=== PATIENT | male | born 1955 | race Caucasian/White ===

== ENCOUNTER 2020-02-15 13:27 | Emergency (ER) | payer BC, MEDICAID ==
--- NOTE | 2020-02-15 13:52 | EDM.PDOC ---
ED HPI GENERAL MEDICAL PROBLEM - General Chief Complaint: Lower Extremity Injury/Pain Stated Complaint: INJURED L LEG Time Seen by Provider: 02/15/20 13:33 Source of Information: Reports: Patient History Limitations: Reports: No Limitations - History of Present Illness INITIAL COMMENTS - FREE TEXT/NARRATIVE: HISTORY AND PHYSICAL: History of present illness: Patient is a 64-year-old male who presents to the emergency room with complaints of left lower extremity pain after a fall. Patient states he had tripped over a railroad track and fallen on Saturday. Part of the railroad track had hit the mid medial left tib-fib causing a puncture wound. Denies hitting his head or having any loss of consciousness. Denies any other bodily injury or trauma. He states that he initially thought he "just bruised it" but since has become more tender, swollen and bruised. His was concerned that he may have a blood clot in the calf due to the bruising. She has been using an Harry wrap to help apply compression, has not improved his discomfort. Patient is ambulatory although has increased pain at the ankle and tib-fib area with weightbearing. Patient denies any fever, chills, headache, change in vision, syncope or near syncope. Denies any chest pain, back pain, shortness of breath or cough. Denies any abdominal pain, nausea, vomiting, diarrhea, constipation or dysuria. Has not noted any blood in urine or stool. Patient has been eating and drinking appropriately. Review of systems: As per history of present illness and below otherwise all systems reviewed and negative. Past medical history: As per history of present illness and as reviewed below otherwise noncontributory. Surgical history: As per history of present illness and as reviewed below otherwise n oncontributory. Social history: See social history for further information Family history: As per history of present illness and as reviewed below otherwise noncontributory. Physical exam: General: Well-developed and well-nourished 64-year-old male. Alert and oriented. Nontoxic-appearing and in no acute distress. Vital signs are stable and have been reviewed by me. HEENT: Atraumatic, normocephalic, pupils equal and reactive bilaterally, negative for conjunctival pallor or scleral icterus, mucous membranes moist, TMs normal bilaterally, throat clear, neck supple, nontender, trachea midline. No drooling or trismus noted. No meningeal signs. No hot potato voice noted. Lungs: Clear to auscultation, breath sounds equal bilaterally, chest nontender. Heart: S1S2, regular rate and rhythm without overt murmur Abdomen: Soft, nondistended, nontender. Negative for masses or hepatosplenomegaly. Negative for costovertebral tenderness. Pelvis: Stable nontender. Skin: Quarter sized area of bruising that is semi-firm and tender to the left medial tib-fib. There is some slight redness around this area. Otherwise skin is intact, warm, dry. No lesions or rashes noted. Extremities: Tenderness to the left medial ankle and mid/distal tib-fib. See skin for details. Moves all extremities per self without difficulty or deficits, negative for cords or calf pain. Neurovascular unremarkable. Neuro: Awake, alert, oriented. Cranial nerves II through XII unremarkable. Cerebellum unremarkable. Motor and sensory unremarkable throughout. Exam nonfocal. Notes: X-ray of the ankle and tib-fib shows soft tissue swelling. Small plantar spur is noted. Old injury involving the medial malleolus is noted. Lab work is unremarkable. He does have some mild redness surrounding the area, we discussed doing a short course of antibiotic with follow-up with his primary care. We discussed signs and symptoms that would prompt him to return to the emergency room. Medication, follow-up and supportive care measures were reviewed and discussed. Voices understanding and is agreeable to plan of care. Denies any further questions or concerns at this time. Diagnostics: X-ray tib-fib/ankle, venous ultrasound Therapeutics: CAM Walker boot, crutches Prescription: Keflex Impression: Fall Left leg contusion Plan: 1. Your x-ray shows no fractures. The ultrasound that was done shows no evidence of a blood clot. The area of swelling is a contusion which is like a bruise under the skin with a collection of blood. This should not involve any circulation problems. You can continue to apply compression with the Harry wrap for comfort. Rest, ice, elevate the extremity as able. 2. Alternate Tylenol and ibuprofen as we discussed. 3. Follow-up with your primary care provider as we discussed. Return to the ED as needed and as discussed. Definitive disposition and diagnosis as appropriate pending reevaluation and review of above. Duration: Day(s): Location: Reports: Lower Extremity, Left left leg Pain Score (Numeric/FACES): 6 - Related Data Allergies Allergy/AdvReac Type Severity Reaction Status Date / Time No Known Allergies Allergy Verified 10/14/15 10:51 Home Meds: Home Meds Omeprazole Magnesium [Prilosec Otc] 20 mg PO DAILY 02/15/20 [History] cephALEXin [Keflex] 500 mg PO BID 5 Days #10 cap 02/15/20 [Rx] Past Medical History - Past Health History Medical/Surgical History: Denies Medical/Surgical History Gastrointestinal History: Reports: GERD - Infectious Disease History Infectious Disease History: Reports: None - Past Surgical History HEENT Surgical History: Reports: Tonsillectomy Social & Family History - Family History Family Medical History: Noncontributory - Tobacco Use Smoking Status *Q: Never Smoker - Caffeine Use Caffeine Use: Reports: Coffee - Recreational Drug Use Recreational Drug Use: No Review of Systems - Review of Systems Review Of Systems: Comprehensive ROS is negative, except as noted in HPI. ED EXAM, GENERAL - Physical Exam Exam: See Below (See dictation) Course - Vital Signs Last Recorded V/S: Last Vital Signs Temp 96.3 F L 02/15/20 13:44 Pulse 90 02/15/20 13:44 Resp 18 02/15/20 13:44 BP 139/80 02/15/20 13:44 Pulse Ox 97 02/15/20 13:44 - Orders/Labs/Meds Orders: Active Orders 24 hr Category Date Time Status DME for Discharge [COMM] Stat Oth 02/15/20 16:02 Ordered Labs: Laboratory Tests 02/15/20 02/15/20 Range/Units 14:15 14:15 WBC 7.02 (4.0-11.0) K/uL RBC 4.44 L (4.50-5.90) M/uL Hgb 12.7 L (13.0-17.0) g/dL Hct 39.1 (38.0-50.0) % MCV 88.1 (80.0-98.0) fL MCH 28.6 (27.0-32.0) pg MCHC 32.5 (31.0-37.0) g/dL RDW Std Deviation 46.0 (28.0-62.0) fl RDW Coeff of Cady 14 (11.0-15.0) % Plt Count 246 (150-400) K/uL MPV 10.20 (7.40-12.00) fL Neut % (Auto) 62.1 (48.0-80.0) % Lymph % (Auto) 24.5 (16.0-40.0) % Sanders % (Auto) 12.8 (0.0-15.0) % Eos % (Auto) 0.3 (0.0-7.0) % Baso % (Auto) 0.3 (0.0-1.5) % Neut # (Auto) 4.4 (1.4-5.7) K/uL Lymph # (Auto) 1.7 (0.6-2.4) K/uL Sanders # (Auto) 0.9 H (0.0-0.8) K/uL Eos # (Auto) 0.0 (0.0-0.7) K/uL Baso # (Auto) 0.0 (0.0-0.1) K/uL Nucleated RBC % 0.0 /100WBC Nucleated RBCs # 0 K/uL INR 1.02 Departure - Departure Time of Disposition: 16:03 Disposition: Home, Self-Care 01 Clinical Impression: Fall Qualifiers: Encounter type: initial encounter Qualified Code(s): W19.XXXA - Unspecified fall, initial encounter Contusion of leg, left Qualifiers: Encounter type: initial encounter Qualified Code(s): S80.12XA - Contusion of left lower leg, initial encounter - Discharge Information Prescriptions: cephALEXin [Keflex] 500 mg PO BID 5 Days #10 cap Instructions: Contusion, [id number] Referrals: PCP,None [Primary Care Provider] - Forms: ED Department Discharge Additional Instructions: The following information is given to patients seen in the emergency department who are being discharged to home. This information is to outline your options for follow-up care. We provide all patients seen in our emergency department with a follow-up referral. The need for follow-up, as well as the timing and circumstances, are variable depending upon the specifics of your emergency department visit. If you don't have a primary care physician on staff, we will provide you with a referral. We always advise you to contact your personal physician following an emergency department visit to inform them of the circumstance of the visit and for follow-up with them and/or the need for any referrals to a consulting specialist. The emergency department will also refer you to a specialist when appropriate. This referral assures that you have the opportunity for follow-up care with a specialist. All of these measure are taken in an effort to provide you with optimal care, which includes your follow-up. Under all circumstances we always encourage you to contact your private physician who remains a resource for coordinating your care. When calling for follow-up care, please make the office aware that this follow-up is from your recent emergency room visit. If for any reason you are refused follow-up, please contact the [facility] Emergency Department at and asked to speak to the emergency department charge nurse. [facility] [address] [place] [id number] [place] [address] 1. Your x-ray shows no fractures. The ultrasound that was done shows no evidence of a blood clot. The area of swelling is a contusion which is like a bruise under the skin with a collection of blood. This should not involve any circulation problems. You can continue to apply compression with the Harry wrap for comfort. Rest, ice, elevate the extremity as able. Take the Keflex as prescribed and continue to monitor the skin for any redness. Should this worsen or new symptoms develop return to the emergency room immediately. 2. Alternate Tylenol and ibuprofen as we discussed. 3. Follow-up with your primary care provider as we discussed. Return to the ED as needed and as discussed. Sepsis Event Note (ED) - Evaluation Sepsis Screening Result: No Definite Risk - Focused Exam Vital Signs: Vital Signs Temp Pulse Resp BP Pulse Ox 02/15/20 13:44 96.3 F L 90 18 139/80 97 - My Orders Last 24 Hours: My Active Orders 02/15/20 16:02 DME for Discharge [COMM] Stat - Assessment/Plan Last 24 Hours: My Active Orders 02/15/20 16:02 DME for Discharge [COMM] Stat
--- NOTE | 2020-02-15 14:30 | CR ---
Left ankle: 3 views of left ankle were obtained. Comparison: No previous ankle study. Soft tissue swelling is identified. Ankle mortise is symmetric. Small plantar spur is seen. Minimal bony irregularity is noted off the medial talar dome possibly due to old chip fracture. Mild deformity of the tip of the medial malleolus is noted likely relating to old injury. Impression: 1. Soft tissue swelling. Other findings which are felt to represent old injury. 2. Small plantar spur. 3. No acute bony abnormality is seen. Diagnostic code #2 This report was dictated in MDT
--- NOTE | 2020-02-15 14:32 | CR ---
Left tibia and fibula: AP and lateral views of the left tibia and fibula were obtained. Comparison: No previous study. Soft tissue swelling is noted. No discrete fracture or other bony abnormality is appreciated. Impression: 1. Soft tissue swelling. 2. No acute bony abnormality is seen. Diagnostic code #2 This report was dictated in MDT
--- NOTE | 2020-02-15 15:58 | US ---
Left lower extremity deep venous ultrasound: Duplex and color Doppler evaluation was obtained of the left common femoral, superficial femoral, popliteal and posterior tibial veins. Findings: Normal Doppler blood flow and compression is seen. Impression: 1. No evidence of deep venous thrombosis within the left lower extremity. Diagnostic code #1 This report was dictated in MDT
== END 2020-02-15 16:12 | disposition home or self-care (01) ==
LOC: MW.ED 13:27
DX: S80.12XA Contusion of left lower leg, initial encounter (principal); K21.9 Gastro-esophageal reflux disease without esophagitis; Z79.899 Other long term (current) drug therapy; W01.0XXA Fall on same level from slipping, tripping and stumbling without subsequent striking against object, initial encounter
CPT/HCPCS: 36415; 73590-26-LT; 73590-LT; 73610-26-LT; 73610-LT; 85025; 85610; 93971-26-LT; 93971-LT; 99284; 99284-25

== ENCOUNTER 2020-03-24 08:18 | Emergency (ER) | payer BC, OTHER ==
--- NOTE | 2020-03-24 10:14 | PCM.SN.2 ---
- Free Text/Narrative Note: I went to see the patient. I was informed by nursing the patient eloped from the emergency department did not want to wait for AMA paperwork. I did call both phone numbers to try to explain the patient that we are able to see him. Both phone numbers were disconnected and I was unable to reach the patient.
== END 2020-03-24 10:10 | disposition home or self-care (01) ==
LOC: MW.ED 08:18
DX: Z53.21 Procedure and treatment not carried out due to patient leaving prior to being seen by health care provider (principal)

== ENCOUNTER 2020-03-24 10:58 | Emergency (ER) | payer SELFPAY ==
--- NOTE | 2020-03-24 11:36 | EDM.PDOC ---
ED HPI GENERAL MEDICAL PROBLEM - General Chief Complaint: Lower Extremity Injury/Pain Stated Complaint: LT ANKLE INJURY Time Seen by Provider: 03/24/20 11:04 Source of Information: Reports: Patient History Limitations: Reports: No Limitations - History of Present Illness INITIAL COMMENTS - FREE TEXT/NARRATIVE: HISTORY AND PHYSICAL: History of present illness: Patient is a 64-year-old male who presents to the emergency room with complaints of headache and left lateral ankle pain. He states he was out at a job site when a bucket had hit him on the left side of the head, was wearing a hard hat and had no loss of consciousness. The bucket eventually hit his left lateral ankle which has been causing pain with weightbearing, palpation and ambulation. Upon arrival he states he still has a mild dull headache to the left lateral scalp. Patient denies any fever, chills, headache, change in vision, syncope or near syncope. Denies any chest pain, back pain, shortness of breath or cough. Denies any GI or symptoms. Review of systems: As per history of present illness and below otherwise all systems reviewed and negative. Past medical history: As per history of present illness and as reviewed below otherwise noncontributory. Surgical history: As per history of present illness and as reviewed below otherwise noncontributory. Social history: See social history for further information Family history: As per history of present illness and as reviewed below otherwise noncontributory. Physical exam: General: Well-developed and well-nourished 64-year-old male. Alert and oriented. Nontoxic-appearing and in no acute distress. HEENT: Mild tenderness with palpation of the left parietal area, no obvious injury or soft tissue swelling. Normocephalic, pupils equal and reactive bilaterally, negative for conjunctival pallor or scleral icterus, mucous membranes moist, TMs normal bilaterally, throat clear, neck supple, nontender, trachea midline. No drooling or trismus noted. No meningeal signs. No hot potato voice noted. Lungs: Clear to auscultation, breath sounds equal bilaterally, chest nontender. Heart: S1S2, regular rate and rhythm without overt murmur Abdomen: Soft, nondistended, nontender. Skin: Intact, warm, dry. No lesions or rashes noted. C-spine/Back: No pinpoint vertebral tenderness upon palpation. No crepitus, step-offs or obvious deformities. Patient is ambulatory into the emergency room without difficulty or deficit. Able to rock back on heels and walk on toes. Denies any urinary or fecal incontinence. Denies any numbness, tingling or saddle paresthesia. No concerns of serious infection, fracture or cord compression, or cauda equina syndrome. Deep tendon reflexes brisk bilaterally. Extremities: Pain with palpation of the left lateral malleolus, moves all extremities per self without difficulty or deficits, negative for cords or calf pain. +CMS. strong pedal pulses bilaterally. Patient is ambulatory into the emergency room. Neurovascular unremarkable. Neuro: Awake, alert, oriented. Cranial nerves II through XII unremarkable. Cerebellum unremarkable. Motor and sensory unremarkable throughout. Exam nonfocal. Notes: Please note that the patient was here just a few hours earlier presenting with the same complaint, he left without being seen and declined to sign paperwork. He states he returned to the emergency room as "my boss made me". Discussed risks versus benefits of a head CT, he would like to proceed forward with this. States his headache is generally gone at this time. CT and ankle x-ray are unremarkable. Offered crutches and Harry wrap for supportive care of the left ankle contusion. He can wear this over the next 1 to 3 days for comfort. If he continues to have pain encouraged him to follow-up with orthopedic provider. Supportive care measures were reviewed and discussed. Voices understanding and is agreeable to plan of care. Denies any further questions or concerns at this time. Diagnostics: Head CT, left ankle x-ray Therapeutics: Harry wrap and crutches Prescription: None Impression: Left ankle injury Head injury Plan: 1. Head CT and ankle x-ray are normal. Rest, ice, elevate the affected extremity. Please wear the splint as directed. 2. Tylenol and/or Ibuprofen as needed for pain management. 3. Follow up with the Orthopedic provider as we discussed. Return to the ED as needed and as discussed. Definitive disposition and diagnosis as appropriate pending reevaluation and review of above. L foot Pain Score (Numeric/FACES): 5 - Related Data Allergies Allergy/AdvReac Type Severity Reaction Status Date / Time No Known Allergies Allergy Verified 03/24/20 11:45 Home Meds: Home Meds Omeprazole Magnesium [Prilosec Otc] 20 mg PO DAILY 02/15/20 [History] Past Medical History - Past Health History Medical/Surgical History: Denies Medical/Surgical History Gastrointestinal History: Reports: GERD - Infectious Disease History Infectious Disease History: Reports: None - Past Surgical History HEENT Surgical History: Reports: Tonsillectomy Social & Family History - Family History Family Medical History: Noncontributory - Caffeine Use Caffeine Use: Reports: None Review of Systems - Review of Systems Review Of Systems: Comprehensive ROS is negative, except as noted in HPI. ED EXAM, GENERAL - Physical Exam Exam: See Below (See dictation) Course - Vital Signs Last Recorded V/S: Last Vital Signs Temp 96.6 F L 03/24/20 11:20 Pulse 66 03/24/20 11:20 Resp 18 03/24/20 11:20 BP 141/82 H 03/24/20 11:20 Pulse Ox 98 03/24/20 11:20 - Orders/Labs/Meds Orders: Active Orders 24 hr Category Date Time Status DME for Discharge [COMM] Stat Oth 03/24/20 12:14 Ordered Departure - Departure Time of Disposition: 12:15 Disposition: Home, Self-Care 01 Clinical Impression: Head injury Qualifiers: Encounter type: initial encounter Qualified Code(s): S09.90XA - Unspecified injury of head, initial encounter Left ankle injury Qualifiers: Encounter type: initial encounter Qualified Code(s): S99.912A - Unspecified injury of left ankle, initial encounter - Discharge Information Referrals: PCP,None [Primary Care Provider] - Forms: ED Department Discharge Additional Instructions: The following information is given to patients seen in the emergency department who are being discharged to home. This information is to outline your options for follow-up care. We provide all patients seen in our emergency department with a follow-up referral. The need for follow-up, as well as the timing and circumstances, are variable depending upon the specifics of your emergency department visit. If you don't have a primary care physician on staff, we will provide you with a referral. We always advise you to contact your personal physician following an emergency department visit to inform them of the circumstance of the visit and for follow-up with them and/or the need for any referrals to a consulting specialist. The emergency department will also refer you to a specialist when appropriate. This referral assures that you have the opportunity for follow-up care with a specialist. All of these measure are taken in an effort to provide you with optimal care, which includes your follow-up. Under all circumstances we always encourage you to contact your private physician who remains a resource for coordinating your care. When calling for follow-up care, please make the office aware that this follow-up is from your recent emergency room visit. If for any reason you are refused follow-up, please contact the [facility] Emergency Department at and asked to speak to the emergency department charge nurse. [facility] [address] [place] [address] [id number] [facility] [address] [place] [id number] Thank you for choosing the [facility] emergency department in [place] for your medical needs today. It was a pleasure caring for you. You were seen in the emergency department for head injury and ankle injury. 1. Head CT and ankle x-ray are normal. Rest, ice, elevate the affected extremity. Please wear the splint as directed. 2. Tylenol and/or Ibuprofen as needed for pain management. 3. Follow up with the Orthopedic provider as we discussed. Return to the ED as needed and as discussed. Sepsis Event Note (ED) - Focused Exam Vital Signs: Vital Signs Temp Pulse Resp BP Pulse Ox 03/24/20 11:20 96.6 F L 66 18 141/82 H 98 - My Orders Last 24 Hours: My Active Orders 03/24/20 12:14 DME for Discharge [COMM] Stat - Assessment/Plan Last 24 Hours: My Active Orders 03/24/20 12:14 DME for Discharge [COMM] Stat
--- NOTE | 2020-03-24 12:07 | CR ---
Left ankle: 3 views left ankle were obtained. Comparison: Previous left ankle study of 02/15/20. Ankle mortise is symmetric. Minimal plantar spur is noted. Minimal irregularity off the medial talar dome is again noted most likely relating to old injury. No acute fracture or dislocation is seen. Impression: 1. Findings as noted above. 2. Nothing acute is appreciated. Diagnostic code #2 This report was dictated in MDT
--- NOTE | 2020-03-24 12:10 | CT ---
Head CT Technique: Multiple axial sections through the brain were obtained. Intravenous contrast was not utilized. Comparison: No prior intracranial imaging is available. Findings: Ventricles along with basal cisterns and sulci over the convexities are within normal limits for the patient's age. No abnormal parenchymal densities are seen. No evidence of intracranial hemorrhage. No midline shift or mass-effect is seen. Bone window settings were reviewed. Mild mucosal thickening is seen within the right ethmoid sinus. Visualized mastoid sinuses show nothing acute. No acute calvarial finding is seen. Impression: 1. Nothing acute is appreciated on noncontrast head CT exam. Diagnostic code #1 This report was dictated in MDT
== END 2020-03-24 12:27 | disposition home or self-care (01) ==
LOC: MW.ED 10:58
DX: S09.90XA Unspecified injury of head, initial encounter (principal); S99.912A Unspecified injury of left ankle, initial encounter; K21.9 Gastro-esophageal reflux disease without esophagitis; Z79.899 Other long term (current) drug therapy; W22.8XXA Striking against or struck by other objects, initial encounter
CPT/HCPCS: 70450; 70450-26; 73610-26-LT; 73610-LT; 99284; 99284-25

== ENCOUNTER 2020-09-23 09:33 | Day surgery (SDC) | payer BC ==
[~2020-09-23 09:33] MED LIST: Lactated Ringers 1,000 ML IV SCH; Lidocaine 2% 5 ML SDV ONE; Midazolam 1 MG/ML 2 ML SDV ONE; Propofol 200 MG/20 ML SDV ONE; fentaNYL 100 MCG/2 ML SDV ONE
--- NOTE | 2020-09-23 09:50 | PCM.PREANE ---
Preanesthetic Assessment - Anesthesia/Transfusion/Family Hx Anesthesia History: Prior Anesthesia Without Reaction Family History of Anesthesia Reaction: No Transfusion History: No Prior Transfusion(s) - Review of Systems General: No Symptoms Pulmonary: No Symptoms Cardiovascular: No Symptoms Gastrointestinal: No Symptoms Neurological: No Symptoms Other: Reports: None - Physical Assessment NPO Status Date: 09/22/20 Vital Signs: Last Vital Signs Temp 97.2 F 09/23/20 09:42 Pulse 64 09/23/20 09:42 Resp 14 09/23/20 09:42 BP 133/74 09/23/20 09:42 Pulse Ox 97 09/23/20 09:42 Height: 5 ft 9 in Weight: 82.554 kg ASA Class: 2 Mental Status: Alert & Oriented x3 Airway Class: Mallampati = 2 Dentition: Reports: Broken Tooth/Teeth ROM/Head Extension: Full Lungs: Clear to Auscultation, Normal Respiratory Effort Cardiovascular: Regular Rate, Regular Rhythm - Lab Values: Laboratory Last Values SARS-CoV-2 RNA (MAGGIE) NEGATIVE (NEGATIVE) 09/23/20 08:15 - Allergies Allergies/Adverse Reactions: Allergies Allergy/AdvReac Type Severity Reaction Status Date / Time No Known Allergies Allergy Verified 09/23/20 09:48 - Blood Blood Available: No - Anesthesia Plan Pre-Op Medication Ordered: None - Acknowledgements Anesthesia Type Planned: General Anesthesia (tiva) Pt an Appropriate Candidate for the Planned Anesthesia: Yes Alternatives and Risks of Anesthesia Discussed w Pt/Guardian: Yes Pt/Guardian Understands and Agrees with Anesthesia Plan: Yes PreAnesthesia Questionnaire - Past Health History Medical/Surgical History: Denies Medical/Surgical History HEENT History: Reports: Other (See Below) Other HEENT History: wears glasses Gastrointestinal History: Reports: Colon Polyp, GERD, Hiatal Hernia Genitourinary History: Reports: BPH Musculoskeletal History: Reports: Fracture Other Musculoskeletal History: hx of fx arm as a child Hematologic History: Reports: Iron Deficiency - Infectious Disease History Infectious Disease History: Reports: None - Past Surgical History Head Surgeries/Procedures: Reports: None HEENT Surgical History: Reports: Tonsillectomy GI Surgical History: Reports: Colonoscopy, EGD Male Surgical History: Reports: Vasectomy - SUBSTANCE USE Tobacco Use Status *Q: Former Tobacco User Tobacco Use Within Last Twelve Months: No Recreational Drug Use History: No - HOME MEDS Home Medications: Home Meds Omeprazole Magnesium [Prilosec Otc] 20 mg PO DAILY 02/15/20 [History] Tamsulosin HCl 0.4 mg PO DAILY 09/19/20 [History] - CURRENT (IN HOUSE) MEDS Current Meds: Current Medications Lactated Ringer's (Ringers, Lactated) 1,000 mls @ 125 mls/hr IV ASDIRECTED [facility] Last Admin: 09/23/20 09:47 Dose: 125 mls/hr Documented by: Discontinued Medications Fentanyl (Sublimaze) Confirm Administered Dose 100 mcg .ROUTE .STK-MED ONE Stop: 09/23/20 07:05 Lidocaine (Xylocaine-Mpf 2%) Confirm Administered Dose 5 ml .ROUTE .STK-MED ONE Stop: 09/23/20 06:49 Midazolam HCl (Versed 1 Mg/Ml) Confirm Administered Dose 2 mg .ROUTE .STK-MED ONE Stop: 09/23/20 07:07 Propofol (Diprivan 20 Ml) Confirm Administered Dose 200 mg .ROUTE .STK-MED ONE Stop: 09/23/20 06:48 Propofol (Diprivan 20 Ml) Confirm Administered Dose 200 mg .ROUTE .STK-MED ONE Stop: 09/23/20 06:50
[2020-09-23] MEDS ORDERED: Glycopyrrolate 0.2 MG/ML SDV ONE (10:09)
[2020-09-23] MEDS ORDERED: Lactated Ringers 1,000 ML IV SCH (10:45)
--- NOTE | 2020-09-23 10:50 | PCM.OPNOTE ---
- General Post-Op/Procedure Note Date of Surgery/Procedure: 09/23/20 Operative Procedure(s): Esophagogastroduodenoscopy with gastric, distal and proximal esophageal biopsies and gastric polypectomy. Colonoscopy. Pre Op Diagnosis: Anemia. History of Schatzki's ring. History of colon polyps. Rectal bleeding. Unexplained weight loss. Anesthesia Technique: MAC (ASA II) Primary Surgeon: Nhan Mae Condition: Good Free Text/Narrative:: DICTATION [id number] CPT CODE [id number]
--- NOTE | 2020-09-23 11:11 | PCM48HPAN ---
Post Anesthesia Note - EVALUATION WITHIN 48HRS OF ANESTHETIC Vital Signs in Normal Range: Yes Patient Participated in Evaluation: Yes Respiratory Function Stable: Yes Airway Patent: Yes Cardiovascular Function Stable: Yes Hydration Status Stable: Yes Pain Control Satisfactory: Yes Nausea and Vomiting Control Satisfactory: Yes Mental Status Recovered: Yes Vital Signs: Last Vital Signs Temp 97.2 F 09/23/20 09:42 Pulse 69 09/23/20 10:58 Resp 12 09/23/20 10:58 BP 115/72 09/23/20 10:58 Pulse Ox 93 L 09/23/20 10:58
--- NOTE | 2020-09-23 11:11 | PCM.POSTAN ---
POST ANESTHESIA ASSESSMENT - MENTAL STATUS Mental Status: Alert, Oriented - VITAL SIGNS Vital Signs: Last Vital Signs Temp 97.2 F 09/23/20 09:42 Pulse 69 09/23/20 10:58 Resp 12 09/23/20 10:58 BP 115/72 09/23/20 10:58 Pulse Ox 93 L 09/23/20 10:58 - RESPIRATORY Respiratory Status: Respiratory Rate WNL, Airway Patent, O2 Saturation Stable - CARDIOVASCULAR CV Status: Pulse Rate WNL, Blood Pressure Stable - GASTROINTESTINAL GI Status: No Symptoms - POST OP HYDRATION Hydration Status: Adequate & Stable
--- NOTE | 2020-09-23 12:15 | OR ---
SURGEON: Nhan Mae M.D. DATE OF PROCEDURE: 09/23/2020 OPERATION PERFORMED: Esophagogastroduodenoscopy with gastric biopsy, gastric polypectomy, and distal and proximal esophageal biopsies. ANESTHESIA: MAC. ASA CLASSIFICATION: II. PREOPERATIVE DIAGNOSES: 1. Anemia. 2. History of Schatzki ring. POSTOPERATIVE DIAGNOSES: 1. [id number] chronic gastritis without ulceration. 2. Gastric polyps. 3. Proximal and distal esophagitis. DESCRIPTION OF PROCEDURE: The patient was taken to the endoscopy room and positioned on the endoscopy table in the left lateral decubitus position. Time-out was called for appropriate identification of the patient and procedure. Monitored anesthesia care was provided. The bite block was placed between the patient's teeth. The gastroscope was inserted through the bite block and advanced without difficulty through the esophagus and stomach into the duodenum where examination was now carried out in a retrograde fashion. The duodenum showed no acute inflammatory changes or ulcerations. The gastroscope was withdrawn to the stomach, which did show [id number] chronic gastritis. Antral biopsies were obtained to look for the presence of Helicobacter pylori. The gastroscope was retroflexed to visualize the proximal stomach, then straightened and slowly withdrawn. The patient did have gastric polyps, and biopsies of the distal and mid stomach were obtained removing polyps for their histologic identification. The GE junction was sharply defined, although there were inflammatory changes noted at 40 cm from the incisors with what appeared to be columnarization of the mucosa. Biopsies of this area were taken. The midportion of the esophagus itself demonstrated good contractility with healthy-appearing mucosa. Proximally, the patient did demonstrate inflammatory changes as well and separate biopsies at 15 cm from the incisors were obtained. The vocal cords were visualized as the scope was withdrawn and noted to move symmetrically. The gastroscope was then removed with the patient having tolerated this portion of the procedure well. Following colonoscopy, he was taken to recovery room in stable condition. GUSTAVO / MOUNA /[id number]
--- NOTE | 2020-09-23 12:55 | OR ---
SURGEON: Nhan Mae M.D. DATE OF PROCEDURE: 09/23/2020 OPERATION PERFORMED: Colonoscopy. PRIMARY SURGEON: Nhan Mae M.D. ANESTHESIA: MAC. ASA CLASSIFICATION: II. PREOPERATIVE DIAGNOSES: 1. Anemia. 2. History of colon polyps. 3. Unexplained weight loss. 4. Rectal bleeding. POSTOPERATIVE DIAGNOSES: No evidence of colonic neoplasia. DESCRIPTION OF PROCEDURE: The patient was taken to the endoscopy or was maintained in the endoscopy room on the endoscopy cart in the left lateral decubitus position. Having completed upper GI endoscopy, the patient was now going to undergo colonoscopy. The colonoscope was inserted into the rectum and advanced with minimal difficulty to the cecum. The cecum was identified by internal landmarks and external pressure. The colonoscope was retroflexed to visualize the ascending colon from below, then straightened, and slowly withdrawn. The prep was excellent. The cecum, ascending colon, hepatic flexure, transverse colon, splenic flexure, descending colon, sigmoid colon, and rectum were very well visualized. No tumors, polyps, or diverticular changes were noted anywhere in the lower gastrointestinal tract. There was no evidence of inflammatory bowel disease. Once the colonoscope was withdrawn to the rectum, it was retroflexed to visualize the anal orifice from above. Again, no tumors or polyps were seen and there were no acute hemorrhoidal changes. The colonoscope was then straightened, the rectum aspirated, and the colonoscope removed. The patient tolerated the procedure well and was taken to recovery room in satisfactory condition. GUSTAVO / MOUNA /[id number]
== END 2020-09-23 11:38 | disposition home or self-care (01) ==
LOC: MW.SDS 09:33
PROVIDERS: ATTEND Surgery
DX: D64.9 Anemia, unspecified (principal); K29.50 Unspecified chronic gastritis without bleeding; K25.9 Gastric ulcer, unspecified as acute or chronic, without hemorrhage or perforation; K31.7 Polyp of stomach and duodenum; N40.1 Benign prostatic hyperplasia with lower urinary tract symptoms; N39.43 Post-void dribbling; Z01.812 Encounter for preprocedural laboratory examination; Z20.828 Contact with and (suspected) exposure to other viral communicable diseases; Z86.010 Personal history of colon polyps; Z79.899 Other long term (current) drug therapy; Z98.890 Other specified postprocedural states; Z87.891 Personal history of nicotine dependence; Z86.16 Personal history of COVID-19
CPT/HCPCS: 43239; 45378; 87635; J2001; J2250; J2704; J3010; J3490; J7120; 00813; 88305; 88312; U0002

== ENCOUNTER 2021-09-04 15:30 | Emergency (ER) | payer BC ==
--- NOTE | 2021-09-04 15:50 | EDM.PDOC ---
ED HPI GENERAL MEDICAL PROBLEM - General Chief Complaint: Chest Pain Stated Complaint: CHEST PAIN Time Seen by Provider: 09/04/21 15:48 - History of Present Illness INITIAL COMMENTS - FREE TEXT/NARRATIVE: History of present illness: The patient is here because of chest pain. On the fifth of this month he began to have a little bit of chest pain and has had a twinge of chest pain since. First episode occurred when he was working in the garage with a space heater on a car. He was exerting himself. He was diaphoretic and felt like he had indigestion. It was a funny pressure in the center of his chest. Associated with diaphoresis but no nausea. He was slightly short of breath. It was worse with exertion. He got to space where he can breathe better and said he got better. He continues to have a twinge in his anterior chest since. On Saturday he had a more prolonged episode of severe pain while he was working on same car in the same close space with the same space heater. He did notice since then that with exertion he gets worse. At that time he felt so faint he lowered himself to the floor and thinks he may have passed out briefly but without injury. The patient is a non-smoker. He is not diabetic. He does not take blood pressure or cholesterol medicine. He has negative family history of coronary vessel disease or thromboembolic disease. He has no recent trip, cast, surgery or immobilization. [] Review of systems: As per history of present illness and below otherwise all systems reviewed and negative. Past medical history: As per history of present illness and as reviewed below otherwise noncontributory. Surgical history: As per history of present illness and as reviewed below otherwise noncontributory. Social history: No reported history of drug or alcohol abuse. Family history: As per history of present illness and as reviewed below otherwise noncontributory. Physical exam: Constitutional - well developed, well-nourished and in no acute distress HEENT - normocephalic, no evidence of trauma - external nose and mouth normal - no mass in neck and no JVD - mucosae moist EYES - full EOM, PERRL, no icterus - no evidence of inflammation, injection, or drainage Respiratory - no respiratory distress, equal bilateral expansion, lungs clear to auscultation and no abnormal lung sounds Cardiovascular - Regular Rhythm with S1 and S2 appreciated and no murmur, gallop or rub. GI - abdomen soft without distension or organomegaly - normal bowel sounds - no guard or rebound Musculoskeletal no gross deformity of long bones or joints - no tenderness, swelling or edema Neurologic - Alert and oriented times four - CN II-XII grossly intact - motor sensory and coordination symmetrically normal Psychiatric - appropriate mood and affect with normal thought content Hematologic - No petechiae or purpura - mucosa appropriate color and sclera not pale - normal nail bed color and refill Integument - no rash or evidence of trauma - normal turgor Diagnostics: [] Therapeutics: [] Impression: [] Plan: [] Definitive disposition and diagnosis as appropriate pending reevaluation and review of above. Chest Pain Score (Numeric/FACES): 6 - Related Data Allergies Allergy/AdvReac Type Severity Reaction Status Date / Time No Known Allergies Allergy Verified 09/04/21 15:45 Home Meds: Home Meds . [No Known Home Meds] 09/04/21 [History] Past Medical History - Past Health History Medical/Surgical History: Denies Medical/Surgical History HEENT History: Reports: Other (See Below) Other HEENT History: wears glasses Gastrointestinal History: Reports: Colon Polyp, GERD, Hiatal Hernia Genitourinary History: Reports: BPH Musculoskeletal History: Reports: Fracture Other Musculoskeletal History: hx of fx arm as a child Hematologic History: Reports: Iron Deficiency - Infectious Disease History Infectious Disease History: Reports: None - Past Surgical History Head Surgeries/Procedures: Reports: None HEENT Surgical History: Reports: Tonsillectomy GI Surgical History: Reports: Colonoscopy, EGD Male Surgical History: Reports: Vasectomy Social & Family History - Family History Family Medical History: No Pertinent Family History - Tobacco Use Second Hand Smoke Exposure: No - Caffeine Use Caffeine Use: Reports: None - Recreational Drug Use Recreational Drug Use: No ED ROS GENERAL - Review of Systems Review Of Systems: Comprehensive ROS is negative, except as noted in HPI. ED EXAM, GENERAL - Physical Exam Exam: See Below Free Text/Narrative:: My physical exam is in the HPI #1 Interpretation EKG Interpretation Comments: EKG performed 09/04/2021 at 3:32 PM shows a sinus rhythm with heart rate of 70 WV interval 122 QT duration 433 QRS 27 abnormal R wave progression with inferior Q waves and T wave inversion in 3 and aVF. Compared to 08/13/2016 T wave inversions in the inferior leads are new. Impression possible acute ischemia or pericarditis. Course - Vital Signs Last Recorded V/S: Last Vital Signs Temp 36.7 C 09/04/21 15:42 Pulse 72 09/04/21 15:42 Resp 20 09/04/21 15:42 BP 147/85 H 09/04/21 15:42 Pulse Ox 97 09/04/21 15:42 - Orders/Labs/Meds Orders: Active Orders 24 hr Category Date Time Status RT Carbon Monoxide Diffusion [RC] Click to Edit Care 09/04/21 16:01 Active PTT,PARTIAL THROMBOPLSTIN TIME [COAG] Stat Lab 09/04/21 18:06 Ordered TROPONIN I [CHEM] Stat Lab 09/04/21 17:43 Received Heparin Sodium/0.45% NaCl [Heparin 25,000 Units in 1/2 Med 09/04/21 18:15 Active NS 500 ML] 500 ml IV TITRATE Sodium Chloride 0.9% [Saline Flush] Med 09/04/21 15:58 Active 10 ml FLUSH ASDIRECTED PRN Sodium Chloride 0.9% [Saline Flush] Med 09/04/21 15:58 Active 2.5 ml FLUSH ASDIRECTED PRN Saline Lock Insert [OM.PC] Stat Oth 09/04/21 15:58 Ordered Medication Orders Heparin Sodium/Sodium Chloride (Heparin 25,000 Units In 1/2 Ns 500 Ml) 500 mls @ 20.032 mls/hr IV TITRATE NAVEEN Sodium Chloride (Sodium Chloride 0.9% 10 Ml Syringe) 10 ml FLUSH ASDIRECTED PRN PRN Reason: Keep Vein Open Last Admin: 09/04/21 16:52 Dose: 10 ml Documented by: VIGNESH Sodium Chloride (Sodium Chloride 0.9% 2.5 Ml Syringe) 2.5 ml FLUSH ASDIRECTED PRN PRN Reason: Keep Vein Open Last Admin: 09/04/21 16:51 Dose: 2.5 ml Documented by: VIGNESH Labs: Laboratory Tests 09/04/21 09/04/21 09/04/21 Range/Units 15:40 15:40 16:58 WBC 6.13 (4.0-11.0) K/uL RBC 4.87 (4.50-5.90) M/uL Hgb 13.9 (13.0-17.0) g/dL Hct 42.7 (38.0-50.0) % MCV 87.7 (80.0-98.0) fL MCH 28.5 (27.0-32.0) pg MCHC 32.6 (31.0-37.0) g/dL RDW Std Deviation 45.2 (28.0-62.0) fl RDW Coeff of Acdy 14 (11.0-15.0) % Plt Count 241 (150-400) K/uL MPV 10.90 (7.40-12.00) fL Neut % (Auto) 57.5 (48.0-80.0) % Lymph % (Auto) 32.0 (16.0-40.0) % Ulster % (Auto) 9.1 (0.0-15.0) % Eos % (Auto) 1.1 (0.0-7.0) % Baso % (Auto) 0.3 (0.0-1.5) % Neut # (Auto) 3.5 (1.4-5.7) K/uL Lymph # (Auto) 2.0 (0.6-2.4) K/uL Ulster # (Auto) 0.6 (0.0-0.8) K/uL Eos # (Auto) 0.1 (0.0-0.7) K/uL Baso # (Auto) 0.0 (0.0-0.1) K/uL Nucleated RBC % 0.0 /100WBC Nucleated RBCs # 0 K/uL ABG Carboxyhemoglobin (0-15) % Sodium 142 (136-148) mmol/L Potassium 4.0 (3.5-5.1) mmol/L Chloride 106 (98-107) mmol/L Carbon Dioxide 25.7 (21.0-32.0) mmol/L BUN 16 (7.0-18.0) mg/dL Creatinine 1.1 (0.8-1.3) mg/dL Est Cr Clr Drug Dosing 66.06 mL/min Estimated GFR (MDRD) > 60.0 ml/min Glucose 85 (74-106) mg/dL Calcium 8.5 (8.5-10.1) mg/dL Total Bilirubin 0.3 (0.2-1.0) mg/dL AST 27 (15-37) IU/L ALT 32 (14-63) IU/L Alkaline Phosphatase 71 (46-116) U/L Troponin I 0.881 H* (0.000-0.056) ng/mL Total Protein 7.1 (6.4-8.2) g/dL Albumin 3.8 (3.4-5.0) g/dL Globulin 3.3 (2.6-4.0) g/dL Albumin/Globulin Ratio 1.2 (0.9-1.6) Influenza Type A RNA NEGATIVE (NEGATIVE) Influenza Type B RNA NEGATIVE (NEGATIVE) SARS-CoV-2 RNA (MAGGIE) NEGATIVE (NEGATIVE) 09/04/21 Range/Units 17:04 WBC (4.0-11.0) K/uL RBC (4.50-5.90) M/uL Hgb (13.0-17.0) g/dL Hct (38.0-50.0) % MCV (80.0-98.0) fL MCH (27.0-32.0) pg MCHC (31.0-37.0) g/dL RDW Std Deviation (28.0-62.0) fl RDW Coeff of Cady (11.0-15.0) % Plt Count (150-400) K/uL MPV (7.40-12.00) fL Neut % (Auto) (48.0-80.0) % Lymph % (Auto) (16.0-40.0) % Ulster % (Auto) (0.0-15.0) % Eos % (Auto) (0.0-7.0) % Baso % (Auto) (0.0-1.5) % Neut # (Auto) (1.4-5.7) K/uL Lymph # (Auto) (0.6-2.4) K/uL Ulster # (Auto) (0.0-0.8) K/uL Eos # (Auto) (0.0-0.7) K/uL Baso # (Auto) (0.0-0.1) K/uL Nucleated RBC % /100WBC Nucleated RBCs # K/uL ABG Carboxyhemoglobin 1.1 (0-15) % Sodium (136-148) mmol/L Potassium (3.5-5.1) mmol/L Chloride (98-107) mmol/L Carbon Dioxide (21.0-32.0) mmol/L BUN (7.0-18.0) mg/dL Creatinine (0.8-1.3) mg/dL Est Cr Clr Drug Dosing mL/min Estimated GFR (MDRD) ml/min Glucose (74-106) mg/dL Calcium (8.5-10.1) mg/dL Total Bilirubin (0.2-1.0) mg/dL AST (15-37) IU/L ALT (14-63) IU/L Alkaline Phosphatase (46-116) U/L Troponin I (0.000-0.056) ng/mL Total Protein (6.4-8.2) g/dL Albumin (3.4-5.0) g/dL Globulin (2.6-4.0) g/dL Albumin/Globulin Ratio (0.9-1.6) Influenza Type A RNA (NEGATIVE) Influenza Type B RNA (NEGATIVE) SARS-CoV-2 RNA (MAGGIE) (NEGATIVE) Meds: Medications Generic Name Dose Route Start Last Admin Trade Name Freq PRN Reason Stop Dose Admin Heparin Sodium/Sodium Chloride 500 mls @ 20.032 mls/hr 09/04/21 18:15 Heparin 25,000 Units In 1/2 Ns 500 Ml IV TITRATE NAVEEN 12.2 UNITS/KG/HR Sodium Chloride 10 ml 09/04/21 15:58 09/04/21 16:52 Sodium Chloride 0.9% 10 Ml Syringe FLUSH 10 ml ASDIRECTED PRN Administration Keep Vein Open Sodium Chloride 2.5 ml 09/04/21 15:58 09/04/21 16:51 Sodium Chloride 0.9% 2.5 Ml Syringe FLUSH 2.5 ml ASDIRECTED PRN Administration Keep Vein Open Discontinued Medications Generic Name Dose Route Start Last Admin Trade Name Freq PRN Reason Stop Dose Admin Aspirin 324 mg 09/04/21 16:43 09/04/21 16:56 Aspirin 81 Mg Tab.Chew PO 09/04/21 16:44 324 mg ONETIME ONE Administration - Re-Assessments/Exams Free Text/Narrative Re-Assessment/Exam: 09/04/21 18:07 This patient is stable. At 1642 I called Maggie Arriola following which I called Nadege Patiño [place]. [facility] was able to accept the patient [id number] and I discussed the case with cardiology Dr. Shearer. He said he wanted the patient heparinized but no Plavix. At that time we began a heparin drip and arrange for flight to [facility]. Departure - Departure Time of Disposition: 18:30 Disposition: DC/Tfer to Acute Hospital 02 Condition: Good Clinical Impression: ACS (acute coronary syndrome) - Discharge Information Referrals: Diane Griffin PA [Primary Care Provider] - Forms: ED Department Discharge Sepsis Event Note (ED) - Evaluation Sepsis Screening Result: No Definite Risk - Focused Exam Vital Signs: Vital Signs Temp Pulse Resp BP Pulse Ox 09/04/21 15:42 36.7 C 72 20 147/85 H 97 - My Orders Last 24 Hours: My Active Orders 09/04/21 15:58 Sodium Chloride 0.9% [Saline Flush] 10 ml FLUSH ASDIRECTED PRN Sodium Chloride 0.9% [Saline Flush] 2.5 ml FLUSH ASDIRECTED PRN Saline Lock Insert [OM.PC] Stat 09/04/21 16:01 RT Carbon Monoxide Diffusion [RC] Click to Edit 09/04/21 17:43 TROPONIN I [CHEM] Stat 09/04/21 18:06 PTT,PARTIAL THROMBOPLSTIN TIME [COAG] Stat 09/04/21 18:15 Heparin Sodium/0.45% NaCl [Heparin 25,000 Units in 1/2 NS 500 ML] 500 ml IV TITRATE - Assessment/Plan Last 24 Hours: My Active Orders 09/04/21 15:58 Sodium Chloride 0.9% [Saline Flush] 10 ml FLUSH ASDIRECTED PRN Sodium Chloride 0.9% [Saline Flush] 2.5 ml FLUSH ASDIRECTED PRN Saline Lock Insert [OM.PC] Stat 09/04/21 16:01 RT Carbon Monoxide Diffusion [RC] Click to Edit 09/04/21 17:43 TROPONIN I [CHEM] Stat 09/04/21 18:06 PTT,PARTIAL THROMBOPLSTIN TIME [COAG] Stat 09/04/21 18:15 Heparin Sodium/0.45% NaCl [Heparin 25,000 Units in 1/2 NS 500 ML] 500 ml IV TITRATE
[2021-09-04] MEDS ORDERED: Sodium Chloride 0.9% 10 ML Syringe FLUSH PRN (15:58)
[2021-09-04] MEDS ORDERED: Sodium Chloride 0.9% 2.5 ML Syringe FLUSH PRN (15:58)
[2021-09-04 16:28] LABS: BLOOD UREA NITROGEN,BUN 16 mg/dL (7.0-18.0); CARBON DIOXIDE,CO2 25.7 mmol/L (21.0-32.0); CHLORIDE,CL 106 mmol/L (98-107); GLUCOSE RANDOM 85 mg/dL (74-106); SODIUM,NA 142 mmol/L (136-148)
[2021-09-04] MEDS ORDERED: Aspirin 81 MG Tab.Chew PO ONE (16:43)
--- NOTE | 2021-09-04 16:58 | CR ---
INDICATION: Chest pain TECHNIQUE: Portable upright AP view of the chest COMPARISON: PA and lateral chest radiographs 11/06/2017 FINDINGS: The lungs are clear. There is no appreciable pleural effusion or pneumothorax. The cardiomediastinal silhouette is normal. The visualized osseous structures are unremarkable. IMPRESSION: No acute intrathoracic process. Dictated by Clint Jolley MD @ 09/04/2021 4:56:53 PM (Electronically Signed)
[2021-09-04 17:53] LABS: CORONAVIRUS COVID-19 NAA NEGATIVE (NEGATIVE); INFLUENZA A NAA NEGATIVE (NEGATIVE); INFLUENZA B NAA NEGATIVE (NEGATIVE)
[2021-09-04] MEDS ORDERED: Heparin Sodium/0.45% NaCl 500 ML IV SCH (18:15)
--- NOTE | 2021-09-06 07:16 | PCM.EKG ---
#2 Interpretation EKG Interpretation Comments: Emergent EKG was repeated in 09/04/21 at 1612 hrs. Sinus rhythm heart rate 65 [place] 96 QT duration 410 axis 45. T waves are inverted in the inferior leads. Compared to 1531 EKG of the same date no change. Impression no obvious injury
== END 2021-09-04 18:46 ==
LOC: MW.ED 15:30
DX: I24.9 Acute ischemic heart disease, unspecified (principal); Z20.822 Contact with and (suspected) exposure to COVID-19
CPT/HCPCS: 0240U; 36415; 71045; 80053; 82375; 84484; 85025; 85730; 93005; 96365; 99285; A9270; J1644